=== PATIENT | female | born 1975 | race Caucasian/White ===

== ENCOUNTER 2018-03-06 20:01 | Inpatient (IN) | payer OTHER ==
[~2018-03-06 20:01] MED LIST: Iopamidol 370 76% 100 ML VIAL ONE
[2018-03-06 20:28] LABS: Bilirubin Negative (Negative); Blood, Urine Trace (Negative); Clarity CLOUDY (Clear); Glucose, Urine (Dipstick) Negative (Negative); Leukocyte Negative (Negative); Nitrite Negative (Negative); Protein, Urine (Dipstick) Negative (Neg-Trace); Specific Gravity, Urine 1.022 (1.002-1.036); Urobilinogen 0.2 mg/dL (0.2-1.0)
[2018-03-06 20:29] LABS: Pregnancy Test - Urine (BHCG) Negative (Negative); Pregu Control Background? CLEAR/WHITE (CLR/WHITE); Pregu Control Bar Appear? YES (CONTROL BAR); Specific Gravity 1.022 (1.002-1.036)
[2018-03-06 20:30] LABS: Bacteria/HPF Rare-Few HPF (None Seen); WBC/HPF 21-50 HPF (0-3)
[2018-03-06] MEDS ORDERED: Ondansetron PF 4 MG/2 ML Vial ONE (20:32)
[2018-03-06] MEDS ORDERED: Morphine 4 MG/ML VIAL ONE ×2 (20:32→22:26)
[2018-03-06 20:36] LABS: Hyaline Casts/LPF 0-3 HYALINE CAST LPF (0-3 Hyaline)
[2018-03-06 21:00] LABS: #Basophils 0.1 thou/uL (0.0-0.2); #Eosinphils 0.1 thou/uL (0.0-0.7); #Lymphocytes 2.4 thou/uL (1.20-3.40); #Monocytes 1.4 thou/uL (0.11-0.59); #Neutrophils 8.9 thou/uL (1.40-6.50); %Basophils 0.5 % (0.0-1.0); %Eosinophils 0.7 % (0.0-10.0); %Lymphocytes 18.7 % (21.0-51.0); %Monocytes 11.1 % (0.0-10.0); Hemoglobin 9.6 g/dL (12.0-16.0); Mean Corpuscular HGB CONC 31.8 g/dL (32.0-36.0); Mean Corpuscular Hemoglobin 25.5 pg (27.0-31.0); Mean Corpuscular Volume 80.1 fL (78.0-98.0); Mean Platelet Volume 5.8 fL (7.4-10.4); PLT Morphology Comment Appears Increased; Platelet Count 960 thou/uL (130-400); RBC Distribution Width 14.5 % (11.5-14.5); Red Blood Cell (RBC) Count 3.77 mill/uL (4.20-5.40); White Blood Cell (WBC) Count 12.9 thou/uL (4.8-10.8)
[2018-03-06 21:04] LABS: Amphetamine Not Detected (NotDetected); Barbiturates Screen Not Detected (NotDetected); Benzodiazepine Screen Not Detected (NotDetected); Cocaine Metabolite Screen Not Detected (NotDetected); Medtox Control Line Valid? VALID (VALID); Medtox Reader # READER 4; Methadone Not Detected (NotDetected); Methamphetamine Not Detected (NotDetected); Opiate Screen Not Detected (NotDetected); Oxycodone Screen Not Detected (NotDetected); Phencyclidine (PCP) Not Detected (NotDetected); THC/Cannabinoid Screen Detected (NotDetected); Tricyclic Screen Not Detected (NotDetected)
[2018-03-06 21:19] LABS: ALT (SGPT) 8 U/L (8-55); AST (SGOT) 8 U/L (5-34); Albumin 3.9 g/dL (3.5-5.0); Alkaline Phosphatase 62 U/L (40-150); Anion Gap 16 mmol/L (10-20); BUN (Urea Nitrogen) 16 mg/dL (7.0-18.7); Bilirubin, Total 0.2 mg/dL (0.2-1.2); Calc. Creatinine Clearance 0 mL/min (70-130); Calcium 10.8 mg/dL (7.8-10.44); Carbon Dioxide 28 mmol/L (22-29); Chloride 97 mmol/L (98-107); Estimated GFR-MDRD 84; Globulin 3.2 g/dL (2.4-3.5); Glucose 95 mg/dL (70-105); Lipase 31 U/L (8-78); Protein, Total 7.1 g/dL (6.0-8.3); Sodium 138 mmol/L (136-145)
[2018-03-06 21:22] LABS: Potassium 2.8 mmol/L (3.5-5.1)
[2018-03-06] MEDS ORDERED: Potassium Chloride 20 MEQ TAB ONE (21:29)
[2018-03-06] MEDS ORDERED: Magnesium 2 GM/50 ML BAG (IN WATER) ONE (22:13)
--- NOTE | 2018-03-06 22:18 | CT ---
CT ABDOMEN AND PELVIS WITH IV CONTRAST 03/06/18 HISTORY: Generalized abdominal pain which is getting worse. Patient losing weight. Vomiting. FINDINGS: The visualized lung bases are clear. Post cholecystectomy changes are seen with mild biliary ductal d ilatation related to post cholecystectomy changes. The liver is otherwise normal in appearance. The s pleen, pancreas, bilateral adrenal glands, kidneys, abdominal aorta and decompressed urinary bladder as well as uterus demonstrate a normal CT appearance. A 2.9 cm low density structure is seen within the left anterior aspect of the pelvis which likely rep resents an ovarian cyst. Low density structures are also seen within the right adnexal region probabl y related to follicles within a patient's right ovary. Surgical clip is seen in the lower pelvis. The appendix is not visualized. There does appear to be curvilinear area of increased density adjacen t to the cecal apex which could be related to postsurgical changes secondary to a prior appendectomy, but clinical correlation is recommended. Loops of small bowel are normal in caliber. Small amount of retained fecal material is seen throughou t the colon. There is an area of abnormal increased thickening involving the gastric antrum and pylor us of the stomach with a low density area seen within area of thickening which could be related to an area of prominent ulceration. Contrast material does extend into this region as well. Small bowel is normal in caliber. IMPRESSION: 1. Abnormal area of thickening involving the gastric antrum and pylorus of the stomach with the area of thickening. There is also suggestion of a collection extending into the area of thickening wh ich could be related to large ulceration, and findings may be related to ulcer disease. However, ulce rating neoplastic process could not be excluded. In the region of ulceration in the gastric wall, the re is thinning along the posterior wall. This likely predisposes the patient to perforation of the ga stric wall in this region. GI consultation is recommended for further evaluation. 2. Mildly prominent lymph nodes adjacent to the area of thickening in the stomach, largest measu ring 11 mm in short axis, and these lymph nodes may be reactive in origin. 3. Post cholecystectomy changes. 4. Probable left ovarian cyst, but followup ultrasound examination in six weeks is recommended. 5. Above findings discussed with Dr. Mathew with the Emergency Department on 03/06/18 at 2219 ho urs. POS: [facility]
[2018-03-06] MEDS ORDERED: Pantoprazole 40 MG VIAL ONE (22:51)
[2018-03-07] MEDS ORDERED: Morphine 4 MG/ML VIAL SLOW IVP SCH (01:00)
[2018-03-07] MEDS ORDERED: Dextrose 5 % And 0.9 % NaCl 1,000 ML IV SCH (01:00)
[2018-03-07] MEDS ORDERED: Magnesium 2 GM/50 ML 2 GM in Premix Bag 1 BAG IVPB SCH (01:00)
[2018-03-07] MEDS ORDERED: Sodium Chloride 0.9% 20 ML ONE (01:14)
[2018-03-07] MEDS: Ondansetron PF 4 MG/2 ML Vial SLOW IVP PRN ×4 (01:27→20:10)
[2018-03-07] MEDS: Morphine 4 MG/ML VIAL SLOW IVP PRN ×3 (05:52→20:04)
[2018-03-07] MEDS ORDERED: Ondansetron PF 4 MG/2 ML Vial IVP PRN (06:42)
[2018-03-07] MEDS ORDERED: Senokot S 8.6-50 MG TAB PO PRN ×2 (06:42)
[2018-03-07] MEDS ORDERED: Loratadine 10 MG TAB PO PRN (06:42)
[2018-03-07] MEDS ORDERED: hydrALAZINE 20 MG/ML VIAL SLOW IVP PRN (06:42)
[2018-03-07] MEDS ORDERED: Bisacodyl 5 MG TAB PO PRN ×2 (06:42)
[2018-03-07] MEDS ORDERED: Cepastat Lozenges 1 LOZ PO PRN (06:42)
[2018-03-07] MEDS ORDERED: Calcium Carbonate 500 MG ChewTAB PO PRN (06:42)
[2018-03-07] MEDS ORDERED: Acetaminophen 325 MG TAB PO PRN (06:42)
[2018-03-07] MEDS ORDERED: Zolpidem Tartrate 5 MG TAB PO PRN ×2 (06:42)
[2018-03-07] MEDS ORDERED: Diabetic Tussin 200 MG/10 ML UDCUP PO PRN (06:42)
[2018-03-07] MEDS ORDERED: Sodium Chloride 0.65% Nasal 44 ML BOT EA NARE PRN (06:42)
[2018-03-07] MEDS ORDERED: Eucerin (Mineral Oil/Petrolatum,White) 30 gm Jar TOP PRN (06:42)
[2018-03-07] MEDS ORDERED: Bisacodyl 10 MG SUPP PR PRN (06:42)
[2018-03-07] MEDS ORDERED: Loperamide HCl 2 MG CAP PO PRN ×2 (06:42)
[2018-03-07] MEDS ORDERED: Ondansetron ODT 4 MG TAB PO PRN (06:42)
[2018-03-07] MEDS ORDERED: Artificial Tears 18 DROP/0.9 ML EA EYE PRN (06:42)
[2018-03-07] MEDS: D5 0.9% NS w/ 20 mEq KCl 1,000 ML IV SCH ×3 (07:51→20:00)
[2018-03-07] MEDS ORDERED: Pantoprazole 40 MG VIAL IVP SCH (09:00)
[2018-03-07] MEDS ORDERED: Pantoprazole 80 MG, Admixture Fee 1 EACH in Sodium Chloride 0.9% 100 ML IVP SCH (09:15)
[2018-03-07] MEDS ORDERED: Morphine 2 MG/ML SYRINGE ONE (09:48)
--- NOTE | 2018-03-07 10:30 | HP ---
PRIMARY CARE PHYSICIAN: [facility]. REASON FOR ADMISSION: Intractable epigastric as well as back pain, hypokalemia, hypomagnesemia, and possible gastric ulcer versus gastric mass. HISTORY OF PRESENT ILLNESS: A 42-year-old female, who has no significant medical history, who is sick since November. The patient reports that in November, symptoms started with upper back pain. She is pointing back pain on the thoracic region as well as predominantly on the right side, which is sharp in nature, constant, about 10/10 in intensity without any specific aggravating or relieving factors. The patient was trying to get medical help on medical attention since November, but unfortunately because of some insurance reasons, she was not able to get an appointment. Finally, she scheduled an appointment on Thursday, but her pain was so intense for last few days, so decided to come to the emergency room for evaluation. Since November, the patient was taking ibuprofen as [id number] scheduled for her pain and the patient also reports that since several months, she pointing more than a year, she has intermittent epigastric abdominal pain, which is getting worse with foods. She also has intermittent nausea and vomiting at home. She had never noticed any hematemesis, melena, or hematochezia. She lost almost 35 pounds within a year. The patient also noticed rash on her back as well as on the right side of the lower back. The patient was trying heat bed at home for her upper back pain without any improvement. The patient denies any UTI symptoms. She denies any fever or chills. She denies any flu-like illness. She denies any cough, pleuritic chest pain, or hemoptysis. REVIEW OF SYSTEMS: CONSTITUTIONAL: Negative for weight loss or gain, ability to conduct usual activities. SKIN: Negative for rash, itching. EYES: Negative for double vision, pain. ENT/MOUTH: Negative for nose bleeding, neck stiffness, pain, tenderness. CARDIOVASCULAR: Negative for palpitations, dyspnea on exertion, orthopnea. RESPIRATORY: Negative for shortness of breath, wheezing, cough, hemoptysis, fever or night sweats. GASTROINTESTINAL: Negative for poor appetite, abdominal pain, heartburn, nausea, vomiting, constipation, or diarrhea. GENITOURINARY: Negative for urgency, frequency, dysuria, nocturia. MUSCULOSKELETAL: Negative for pain, swelling. NEUROLOGIC/PSYCHIATRIC: Negative for anxiety, depression. ALLERGY/IMMUNOLOGIC: Negative for skin rash, bleeding tendency. Please see my HPI for pertinent positives and negatives. All other review of systems reviewed and negative except as mentioned in HPI. ALLERGIES: HYDROCHLOROTHIAZIDE. CURRENT HOME MEDICATION: Ibuprofen 600 mg q.6 hourly p.r.n. PAST MEDICAL HISTORY: Hypertension during and migraine headache. PAST SURGICAL HISTORY: x2, cyst removed from ovary, cholecystectomy, and appendicectomy. PAST PSYCHIATRIC HISTORY: Reviewed and negative. SOCIAL HISTORY: The patient is smoking about half pack per day. She is not , but she has a boyfriend. She is periodically abusing marijuana. She denies any alcohol abuse. FAMILY HISTORY: No family history of coronary artery disease, stroke, or cancer. EMERGENCY ROOM COURSE: The patient is given Protonix 40 mg, IV fluid 2 L, morphine 4 mg x2, Zofran 8 mg, magnesium sulfate 2 g, and potassium chloride 40 mEq p.o. PHYSICAL EXAMINATION: VITAL SIGNS: On arrival, blood pressure 132/96, pulse 124, respiratory rate 20, temperature 98.8, and saturation 98% on room air. Weight 45.3 kg. GENERAL: The patient is currently alert, awake, appears emaciated. No obvious acute distress. HEAD: Normocephalic and atraumatic. EYES: Pupils are round and reactive to light. Extraocular muscles are intact. ENT: Oropharynx within normal limits. Moist mucous membranes. No oral lesion. No pharyngeal erythema. No exudate. NECK: Supple. No JVD. No thyromegaly. No carotid bruit. No jugular venous distention. LUNGS: Clear to auscultation without any rhonchi or rales. CARDIAC: S1 and S2. Regular, tachycardia. No murmur. No gallop. No rub. ABDOMEN: The patient does have epigastric tenderness. No Lawrence sign. No guarding. No rigidity. No rebound. No suprapubic discomfort. BACK: The patient does have a reticular rash over her upper back and petechial rash on the right side of lower back. The patient does have upper back discomfort, but no point tenderness. EXTREMITIES: Upper extremities; passive movement of all joints is normal. Lower extremities; no edema, good distal pulsation. SKIN: No skin rash. HEMATOLOGIC: No lymphadenopathy. PSYCHIATRIC: Normal affect. NEUROLOGIC: Nonfocal examination. LABORATORY DATA: Significant labs: CT abdomen and pelvis reviewed by me and reported as abnormal area of thickening involving gastric antrum and pylorus of the stomach related with probably large ulceration, prominent lymph node adjacent to the area of thickening in the stomach. CBC: WBC 12.9, hemoglobin 9.6, and platelet 916. BMP: Sodium 138, potassium 2.8, chloride 97, carbon dioxide 28, BUN 16, creatinine 0.76, glucose 95, calcium 10.8, magnesium 1.4. LFT: AST 8, ALT 8, alkaline phosphatase 62, and albumin 3.9, lipase 31. Urinalysis, unremarkable. test, negative. Urine drug screen, positive for cannabinoids. ASSESSMENT AND PLAN: 1. Epigastric abdominal pain. This patient is taking NSAID as scheduled since November. She has CT scan finding of thickening of the gastric antrum and pylorus. Most likely, the patient has underlying large ulceration from peptic ulcer disease secondary to most likely from NSAID, but underlying malignant process is also likely in her case. This patient's pain is getting worse with food and she is not eating because she is afraid of getting more pain after food and she has significant weight loss that all reports alarming feature and she also has underlying anemia. We will consult fence erector. We will keep her n.p.o. We will treat her with Protonix drip and the patient will need ultimately upper endoscopy evaluation. Meanwhile, the patient will be hydrated with IV fluid. 2. Upper back pain, etiology uncertain. We will control her pain with morphine 2 mg every four hourly. Depending upon her clinical course, we will decide to do more investigation, if needed. 3. Protein-calorie malnutrition. The patient has significant weight loss, failure to thrive secondary to probably gastric ulcer disease and neoplastic process needs to be excluded. 4. Rash. The patient has reticular rash on back, probably related with dermatitis from application of hot bags for her back pain. She has petechial rash that cannot be explained. We will monitor. 5. Anemia, normocytic normochromic. The patient will be given iron sulfate upon discharge. We will check iron study tomorrow. 6. Thrombocytosis, likely reactive secondary to anemia. 7. Hypokalemia. The patient had potassium replaced and we will replace potassium with IV fluid. 8. Hypomagnesemia, which is replaced in the emergency room and we will repeat magnesium level tomorrow. 9. Tobacco abuse disorder. Smoking cessation counseling given. Healthy lifestyle measure discussed with the patient. 10. Marijuana abuse. Counseling given to avoid any illicit drugs. 11. Deep venous thrombosis prophylaxis, SCD boots. We will avoid heparin product because of large ulceration. 12. Gastrointestinal prophylaxis. The patient will be kept on Protonix drip. CODE STATUS: The patient is full code. DISPOSITION: Plan based on clinical course. We are expecting the patient's stay in hospital more than 2 midnights. PLAN OF CARE: Discussed with the patient in detail. Job ID: [id number]
[2018-03-07] MEDS ORDERED: PROPOFOL 200 MG/20 ML VIAL ONE (12:35)
--- NOTE | 2018-03-07 15:21 | CON ---
DATE OF CONSULTATION: 03/07/2018 GI INPATIENT CONSULTATION NOTE REASON FOR CONSULTATION: Abdominal pain, weight loss, and abnormal CT scan. HISTORY OF PRESENT ILLNESS: Cesia Hernandes is a 42-year-old woman with a history of migraine headaches, cholecystectomy, appendectomy, and C-sections. She was admitted to the hospital last night. She reports that for several years, she has had some intermittent more mild epigastric pain, which she has not really paid much attention to; however, now for the past several months, she has been having significant constant severe pain in her back. She describes this as being in her thoracic spine area. She has been taking a lot of nonsteroidal anti-inflammatory drugs throughout this time. She had been taking 4 ibuprofen about every 6 hours for at least the past several weeks. She also does smoke, for the past 20 years. As her back pain has gotten worse, she started to have nausea and daily vomiting and loss of appetite and decrease in oral intake. This has been worsening over the past month. She estimates she has lost about 30 pounds over the past month. On presentation to the emergency department yesterday, she was found to be hypokalemic and hypomagnesemic. A CT scan of the abdomen and pelvis was performed, and this demonstrates an area of thickening and also an area of thinning in the gastric antral area, consistent with ulcer disease versus neoplasm. There is a comment that the posterior wall of the stomach is thin and this predisposes her to perforation. There are multiple prominent lymph nodes adjacent to this area of thickening in the stomach. She has been n.p.o. since admission. No fever. No diarrhea. She denies any hematemesis, melena, or hematochezia. REVIEW OF SYSTEMS: Full review of systems including constitutional, head, eyes, ears, nose, throat, GI, , cardiovascular, respiratory, musculoskeletal, and neurologic systems is negative except as noted in the HPI. PAST MEDICAL HISTORY: 1. Hypertension during . 2. Migraine headaches. PAST SURGICAL HISTORY: 1. x2. 2. Cholecystectomy. 3. Appendectomy. ALLERGIES: HYDROCHLOROTHIAZIDE. OUTPATIENT MEDICATIONS: Ibuprofen 4 tablets every 6 hours. SOCIAL HISTORY: She has smoked for the past 20 years. No alcohol or drug abuse. FAMILY HISTORY: Negative for GI malignancy. PHYSICAL EXAMINATION: VITAL SIGNS: Temperature 99.3, pulse 86, blood pressure 154/97, and 98% oxygen saturation on room air. GENERAL: A 42-year-old woman, lying in bed, in mild distress from back pain. SKIN: No jaundice. No rashes were palpable. EYES: No scleral icterus. Extraocular movements intact. ENT: Mucous membranes moist. No oral lesions. LYMPH: No submandibular or supraclavicular lymphadenopathy. THYROID: Nontender to palpation. HEART: Regular rate and rhythm. LUNGS: Clear to auscultation bilaterally. ABDOMEN: Flat. Bowel sounds present. Soft. Tender to palpation throughout the abdomen, but no guarding or rebound tenderness. EXTREMITIES: No peripheral edema. VESSELS: Radial pulses 2+ bilaterally. NEUROLOGIC: Cranial nerves 2 through 12 intact bilaterally. No focal deficits. LABORATORY STUDIES: WBC 12.9, hemoglobin 9.6, MCV 80.1, and platelets 960. Sodium 138, potassium 2.8, BUN 16, creatinine 0.76, calcium 10.8, and magnesium 1.4. LFTs all normal with total bilirubin 0.2, alkaline phosphatase 62, AST 8, ALT 8, and lipase only 31. Urinalysis shows 21 to 50 wbc's. Urine drug screen is positive for cannabinoids. IMAGING STUDIES: CT of the abdomen and pelvis demonstrated an area of abnormal increased thickening in the gastric antrum and pylorus with a low-density area within the thickening perhaps relating to prominent ulceration. There is thinning along the posterior wall of the stomach. There are mildly prominent lymph nodes adjacent to the area of stomach thickening, the largest measuring 11 mm. ASSESSMENT: 1. Abnormal CT scan of the stomach, neoplasm versus ulcer disease. 2. Epigastric pain. 3. Abnormal weight loss. 4. Anemia. PLAN: I discussed with the patient that her CT scan is highly suggestive of severe peptic ulcer disease. What is less clear is whether this underlies her back pain, or whether it might be a consequence of all the NSAID she has been taking for her back pain. We will plan for diagnostic EGD. I did discuss with her she is a bit higher risk with the procedure given the CT findings of thinning along the posterior wall of the stomach. I have already spoken with Dr. Glover, so we will have surgical backup in case of any complication such as perforation. I have started her on an IV PPI. We will likely be taking gastric biopsies if ulcer disease is noted on the EGD. The patient understands and desires to proceed. Thank you for the consultation. Please call anytime with questions or concerns. Job ID: [id number]
[2018-03-07] MEDS ORDERED: [UNRECOGNIZED DRUG - REMARK] FS SCH (17:15)
--- NOTE | 2018-03-07 17:42 | OP ---
DATE OF PROCEDURE: 03/07/2018 UTILITY WORKER PRODUCTION SURGEON: None. PROCEDURE PERFORMED: Esophagogastroduodenoscopy with biopsies. INDICATION: A 42-year-old woman with abdominal pain, unintentional weight loss, nausea, vomiting, and anemia, with CT scan showing abnormal thickening and thinning of the gastric antrum concerning for neoplasm versus peptic ulcer disease. MEDICATIONS: See Anesthesia record. FINDINGS: After discussion of the risks, benefits, alternatives of the procedure, informed consent was obtained and witnessed. Pre-endoscopic cardiopulmonary examination was satisfactory. Time-out was performed before sedation was achieved. Sedation was achieved with Anesthesia assistance in the endoscopy unit. A Pentax adult upper endoscope was placed into the oropharynx and passed through the cricopharyngeus under direct visualization. The esophageal mucosa appeared normal throughout with a normal-appearing Z-line. The endoscope was advanced into the stomach. Forward and retroflexed views of the entire gastric mucosa were obtained. There was no evidence of any old blood or active bleeding on this examination. The gastric fundus and body appeared normal, but in the gastric antrum, there was a very large, deeply cratered ulceration basically involving the entire posterior wall of the gastric antrum. The edges were somewhat heaped up. The base was necrotic. No visible vessel noted. I took biopsies from the ulcer edge to rule out malignancy. The ulceration does not involve the pylorus, which actually appears normal. The endoscope was advanced through the pylorus and into the first and second portions of the duodenum. There was some mild erosive duodenitis involving the duodenal bulb. At this point, the upper endoscope was completely withdrawn suctioning out excess air and fluid, and the procedure was completed. The patient tolerated the procedure well. There were no immediate postprocedure complications. IMPRESSION: 1. Very large, deeply cratered ulcer involving the entire posterior wall of the gastric antrum, with necrotic base, but no bleeding. Ulcer edge was biopsied to rule out malignancy. 2. Mild erosive duodenitis. 3. Otherwise, normal esophagogastroduodenoscopy. RECOMMENDATIONS: 1. Protonix 40 mg IV twice daily. We will switch from IV to p.o., twice daily dosing, on hospital discharge. 2. Check H. pylori serology with tomorrow morning's labs. If positive, treat with triple therapy and confirm eradication. 3. Follow up biopsy results on the gastric ulcer biopsies. 4. Avoid all further nonsteroidal anti-inflammatory drugs. 5. The patient needs to completely quit smoking. 6. Full liquid diet for now. 7. We will need to repeat EGD at the 2-month interval to assess ulcer healing. The patient is indeed at a high risk for complication including bleeding as well as perforation with such a large deep ulcer. Expect that even if the ulcer heals well, there will be significant deformity. Job ID: [id number]
[2018-03-07 17:45] LABS: Bilirubin Negative (Negative); Blood, Urine Negative (Negative); Clarity CLOUDY (Clear); Glucose, Urine (Dipstick) Negative (Negative); Leukocyte Negative (Negative); Nitrite Negative (Negative); Protein, Urine (Dipstick) Negative (Neg-Trace); Specific Gravity, Urine 1.009 (1.002-1.036); Urobilinogen 0.2 mg/dL (0.2-1.0); pH, Urine 6.5 (5.0-9.0)
[2018-03-07 17:47] LABS: Bacteria/HPF 1+ HPF (None Seen); Hyaline Casts/LPF 4-6 HYALINE CAST LPF (0-3 Hyaline); Pathc Cast-AUWi Flag 1.16 (0-2.49)
[2018-03-07 17:56] LABS: RBC/HPF 0-3 HPF (0-3)
[2018-03-08] MEDS: Morphine 4 MG/ML VIAL SLOW IVP PRN ×6 (00:53→20:42)
[2018-03-08] MEDS: Ondansetron PF 4 MG/2 ML Vial SLOW IVP PRN ×4 (00:57→22:25)
[2018-03-08] MEDS: Pantoprazole 40 MG VIAL IVP SCH ×2 (00:59→15:08)
[2018-03-08 05:50] LABS: #Basophils 0.1 thou/uL (0.0-0.2); #Eosinphils 0.1 thou/uL (0.0-0.7); #Lymphocytes 2.6 thou/uL (1.20-3.40); #Monocytes 0.7 thou/uL (0.11-0.59); #Neutrophils 5.4 thou/uL (1.40-6.50); %Basophils 0.8 % (0.0-1.0); %Eosinophils 1.4 % (0.0-10.0); %Lymphocytes 29.1 % (21.0-51.0); %Neutrophils 60.7 % (42.0-75.0); Hemoglobin 7.5 g/dL (12.0-16.0); Mean Corpuscular HGB CONC 30.3 g/dL (32.0-36.0); Mean Corpuscular Hemoglobin 25.1 pg (27.0-31.0); Mean Corpuscular Volume 82.8 fL (78.0-98.0); Platelet Count 702 thou/uL (130-400); RBC Distribution Width 14.6 % (11.5-14.5); Red Blood Cell (RBC) Count 2.98 mill/uL (4.20-5.40); White Blood Cell (WBC) Count 8.9 thou/uL (4.8-10.8)
[2018-03-08] MEDS: D5 0.9% NS w/ 20 mEq KCl 1,000 ML IV SCH (06:08)
[2018-03-08 06:54] LABS: ALT (SGPT) 9 U/L (8-55); AST (SGOT) 7 U/L (5-34); Alkaline Phosphatase 53 U/L (40-150); Anion Gap 8 mmol/L (10-20); BUN (Urea Nitrogen) Less than 4 mg/dL (7.0-18.7); Bilirubin, Total 0.2 mg/dL (0.2-1.2); Calc. Creatinine Clearance 101 mL/min (70-130); Calcium 8.3 mg/dL (7.8-10.44); Carbon Dioxide 28 mmol/L (22-29); Chloride 108 mmol/L (98-107); Estimated GFR-MDRD Greater than 90; Globulin 2.4 g/dL (2.4-3.5); Glucose 94 mg/dL (70-105); Magnesium 1.7 mg/dL (1.6-2.6); Potassium 3.1 mmol/L (3.5-5.1); Protein, Total 5.4 g/dL (6.0-8.3); Sodium 141 mmol/L (136-145)
[2018-03-08] MEDS ORDERED: Potassium Chloride 20 MEQ in Premix Bag 1 BAG IVPB SCH (07:45)
[2018-03-08 08:30] LABS: Iron Binding Capacity, Total 284 mcg/dL (265-497)
[2018-03-08 08:31] LABS: Iron 8 ug/dL (50-170)
[2018-03-08 08:38] LABS: Iron 10 ug/dL (50-170); Iron Binding Capacity, Total 288 mcg/dL (265-497)
[2018-03-08] MEDS ORDERED: Iron Sucrose Complex 200 MG in Sodium Chloride 0.9% 250 ML 250 ML IVPB SCH ×2 (09:00→12:15)
[2018-03-08] MEDS ORDERED: Iron, Sodium Ferric Gluconate 250 MG in Sodium Chloride 0.9% 250 ML 250 ML IVPB SCH (09:30)
--- NOTE | 2018-03-08 09:42 | PDOC.PN ---
- Subjective Encounter Start Date: 03/08/18 Encounter Start Time: 07:40 -: old records requested/rev Patient seen and examined. No new complaints. No overnight events - Objective Resuscitation Status - Order Detail: 03/07/18 06:42 Resuscitation Status Routine Resuscitation Status: FULL: Full Resuscitation MAR Reviewed: Yes Vital Signs & Weight: Vital Signs (12 hours) Temp Pulse Resp BP Pulse Ox 03/08/18 07:28 97.8 F 81 14 127/90 98 03/08/18 04:51 98 03/08/18 03:22 98.1 F 74 12 138/91 H 98 03/08/18 00:00 97.7 F 86 20 160/102 H 98 Weight Weight 102 lb 6.4 oz I&O: 03/07/18 03/08/18 03/09/18 06:59 06:59 06:59 Intake Total 475 3117 Output Total 1300 2100 Balance -825 1017 Result Diagrams: 03/08/18 05:01 03/08/18 05:01 EKG Reviewed by me: Yes (nsr) Phys Exam - Physical Examination Constitutional: NAD HEENT: PERRLA, moist MMs, sclera anicteric Neck: no JVD, supple Respiratory: no wheezing, no rales, no rhonchi Cardiovascular: RRR, no significant murmur, no rub Gastrointestinal: soft, no distention, positive bowel sounds epigastric tenderness Musculoskeletal: no edema, pulses present Neurological: non-focal, normal sensation Lymphatic: no nodes Psychiatric: normal affect, A&O x 3 Skin: no rash, normal turgor Dx/Plan (1) Anemia, normocytic normochromic Code(s): D64.9 - ANEMIA, UNSPECIFIED Status: Acute Comment: iron deficiency anemia (2) Hypertension Code(s): I10 - ESSENTIAL (PRIMARY) HYPERTENSION Status: Chronic (3) Hypokalemia Code(s): E87.6 - HYPOKALEMIA Status: Acute (4) Hypomagnesemia Code(s): E83.42 - HYPOMAGNESEMIA Status: Acute (5) Weight loss Status: Acute (6) Cannabis abuse Code(s): F12.10 - CANNABIS ABUSE, UNCOMPLICATED Status: Chronic (7) Tobacco abuse Code(s): Z72.0 - TOBACCO USE Status: Chronic - Plan cont current plan of care * replace potassium * continue protonix * iron study checked and will give parenteral iron * medication reviewed as below * symptomatic treatment. Review of Systems - Review of Systems ENT: negative: Ear Pain, Ear Discharge, Nose Pain, Nose Discharge, Nose Congestion, Mouth Pain, Mouth Swelling, Throat Pain, Throat Swelling, Other Respiratory: negative: Cough, Dry, Shortness of Breath, Hemoptysis, SOB with Excertion, Pleuritic Pain, Sputum, Wheezing Cardiovascular: negative: chest pain, palpitations, orthopnea, paroxysmal nocturnal dyspnea, edema, light headedness, other Gastrointestinal: Abdominal Pain. negative: Nausea, Vomiting, Diarrhea, Constipation, Melena, Hematochezia, Other Genitourinary: negative: Dysuria, Frequency, Incontinence, Hematuria, Retention , Other Musculoskeletal: Back Pain. negative: Neck Pain, Shoulder Pain, Arm Pain, Hand Pain, Leg Pain, Foot Pain, Other - Medications/Allergies Allergies/Adverse Reactions: Allergies Allergy/AdvReac Type Severity Reaction Status Date / Time hydrochlorothiazide Allergy Anaphylaxis Verified 03/07/18 01:21 Medications: Current Medications Acetaminophen (Tylenol) 650 mg PO Q4H PRN PRN Reason: Headache/Fever/Mild Pain (1-3) Last Admin: 03/07/18 12:17 Dose: 650 mg Hydrocodone Bitart/Acetaminophen ([place] 5/325) 1 tab PO Q4H PRN PRN Reason: Moderate Pain (4-6) Artificial Tears (Tears Naturale) 2 drop EA EYE PRN PRN PRN Reason: Dry Eyes Bisacodyl (Dulcolax) 10 mg [place] DAILYPRN PRN PRN Reason: Constipation Bisacodyl (Dulcolax) 10 mg PO DAILYPRN PRN PRN Reason: Constipation Calcium Carbonate (Tums) 1,000 mg PO Q4H PRN PRN Reason: Heartburn or Indigestion Guaifenesin (Robitussin Sf) 200 mg PO Q4H PRN PRN Reason: Cough Hydralazine HCl (Apresoline) 10 mg SLOW IVP Q4H PRN PRN Reason: SBP > 180 and HR < 70 Potassium Chloride 20 meq/ (Device) 100 mls @ 50 mls/hr IVPB 0745 [facility] Stop: 03/08/18 09:44 Last Admin: 03/08/18 08:17 Dose: 100 mls Ferric Sodium Gluconate Complex 250 mg/ Sodium Chloride 270 mls @ 129.808 mls/ hr IVPB 0930 [facility] Stop: 03/08/18 11:35 Loperamide HCl (Imodium) 2 mg PO PRN PRN PRN Reason: Diarrhea/Loose Stools Loratadine (Claritin) 10 mg PO DAILYPRN PRN PRN Reason: Sinus Symptoms Mineral Oil/White Petrolatum (Eucerin Cream) 0 gm TOP BIDPRN PRN PRN Reason: Dry Skin Morphine Sulfate (Morphine) 2 mg SLOW IVP Q4H PRN PRN Reason: Pain Last Admin: 03/08/18 08:12 Dose: 2 mg Ondansetron HCl (Zofran) 4 mg SLOW IVP Q4H PRN PRN Reason: Nausea/Vomiting Last Admin: 03/08/18 05:22 Dose: 4 mg Ondansetron HCl (Zofran Odt) 4 mg PO Q6H PRN PRN Reason: Nausea/Vomiting Ondansetron HCl (Zofran) 4 mg IVP Q6H PRN PRN Reason: Nausea/Vomiting Pantoprazole Sodium (Protonix) 40 mg IVP 0100,1300 [facility] Last Admin: 03/08/18 00:59 Dose: 40 mg Senna/Docusate Sodium (Senokot S) 2 tab PO BID PRN PRN Reason: Constipation Sodium Chloride (Flush - Normal Saline) 10 ml IVF PRN PRN PRN Reason: Saline Flush Last Admin: 03/08/18 05:22 Dose: 10 ml Sodium Chloride ([place] Nasal [place] 0.65%) 0 ml EA NARE QIDPRN PRN PRN Reason: Nasal Congestion Sodium Chloride (Flush - Normal Saline) 10 ml IV 0100,1300 [facility] Last Admin: 03/08/18 00:59 Dose: 10 ml Throat Lozenges (Cepastat Lozenges) 1 bell PO Q2H PRN PRN Reason: Sore Throat Zolpidem Tartrate (Ambien) 5 mg PO HSPRN PRN PRN Reason: Insomnia
--- NOTE | 2018-03-08 10:27 | PRG ---
DATE OF SERVICE: 03/08/2018 TYPE OF REPORT: GI INPATIENT DAILY PROGRESS NOTE SUBJECTIVE: Ms. Hernandes is feeling about the same today. Abdominal discomfort is minimal. She tolerates her liquid diet. Her primary complaint remains her chronic back pain. PHYSICAL EXAMINATION: VITAL SIGNS: Temperature 97.8, pulse 81, blood pressure 127/90, and 98% oxygen saturation on room air. GENERAL: No acute distress. HEART: Regular rate and rhythm. LUNGS: Clear to auscultation bilaterally. ABDOMEN: Bowel sounds present. Soft. Some tenderness to palpation in the epigastrium. No guarding, rebound, or tenderness. EXTREMITIES: No peripheral edema. LABORATORY STUDIES: Hemoglobin 7.5, WBC 8.9, and platelets 702. Sodium 141, potassium 3.1, BUN less than 4, and creatinine is 0.54. LFTs all normal. Ferritin is low at 5.77, iron is 10, and TIBC 288. ASSESSMENT AND PLAN: 1. Large gastric ulcer, gastric antrum. 2. Iron deficiency anemia. 3. Duodenitis. I discussed with the patient that this ulcer likely represents injury from heavy nonsteroidal anti-inflammatory drug use plus her tobacco abuse. We are awaiting gastric biopsies to rule out malignancy, but this is likely a benign ulcer. I think it explains her anemia, weight loss, and nausea. I am not really convinced that the ulcer is directly related to her chronic back pain, which remains her primary complaint. She is worried about what she is going to do about pain with nonsteroidal avoidance. I would leave further workup and management of this to the primary service, but certainly a plan needs to be worked out to allow her to stay away from nonsteroidal anti-inflammatory drugs. Continue the IV PPI twice daily for now. Upon hospital discharge, transition to p.o. twice daily dosing for at least the next couple of months until after we can repeat esophagogastroduodenoscopy to assess ulcer healing. Her diet can be advanced as tolerated. From a GI standpoint, once she is tolerating p.o. intake is in place, she could be discharged from the hospital. I would also have her on oral iron supplementation. I agree with the IV iron plan for today. Please call anytime with questions or concerns. Job ID: [id number]
[2018-03-08] MEDS ORDERED: Iron, Sodium Ferric Gluconate 250 MG in Sodium Chloride 0.9% 100 ML IVPB SCH (12:45)
[2018-03-08 14:48] VITALS: BMI 18.7
--- NOTE | 2018-03-08 17:56 | MRI ---
MRI THORACIC SPINE WITHOUT CONTRAST: Date: 03/08/18 HISTORY: Back pain. COMPARISON: None. FINDINGS: The marrow signal is maintained. No marrow infiltrative process. Old superior end plate deformity is present at T10. No acute fracture. No acute malalignment. The cord signal is normal. There is no neural foraminal or spinal canal narrowing. IMPRESSION: No abnormality of the thoracic spine to explain patient's back pain. Please see recent CT examination which may be a source of the patient's pain. POS: GARRISON
--- NOTE | 2018-03-08 18:03 | MRI ---
MRI LUMBAR SPINE NONCONTRAST: DATE: 03/08/18 HISTORY: 42-year-old female with low back pain. COMPARISON: None available. FINDINGS: For the purposes of this report, it will be assumed that there are 5 lumbar-type vertebrae. The vert ebral body heights are maintained. Conus medullaris terminates at L1. No major spondylolisthesis. Cauda equina is arranged in a symmetri bull, normal distribution throughout the thecal sac. Bone marrow signal is normal. There is no high gr margie disc space narrowing at any level. There is disc desiccation at L4-5 and L5-S1. The rest of the i ntervertebral discs are normal. The findings by individual levels are as follows: T12-L1: Normal. L1-2: Normal. L2-3: Normal. L3-4: Normal. L4-5: Mild disc bulge. Right lateral annular fissure. Mild to moderate bilateral neural foraminal st enosis. No central stenosis. L5-S1: Mild diffuse disc bulge plus superimposed central and bilateral paracentral shallow disc prot rusion with annular fissure. This abuts the bilateral S1 nerve roots. No central stenosis. Mild to mo derate right neural foraminal stenosis. Minimal left neural foraminal stenosis. No high grade facet osteoarthrosis at any level. IMPRESSION: 1. Mild degenerative disc disease at L4-5 and L5-S1, where there are right lateral and midline (resp ectively) small disc protrusions with annular fissures. 2. No central spinal canal stenosis at any level. JARETT Paige POS: MIRZA
[2018-03-09] MEDS: Pantoprazole 40 MG VIAL IVP SCH ×2 (00:33→12:59)
[2018-03-09] MEDS: Morphine 4 MG/ML VIAL SLOW IVP PRN ×4 (00:50→23:49)
[2018-03-09 05:43] LABS: #Basophils 0.1 thou/uL (0.0-0.2); #Eosinphils 0.1 thou/uL (0.0-0.7); #Lymphocytes 2.6 thou/uL (1.20-3.40); #Monocytes 0.7 thou/uL (0.11-0.59); #Neutrophils 3.4 thou/uL (1.40-6.50); %Eosinophils 1.8 % (0.0-10.0); %Lymphocytes 38.2 % (21.0-51.0); %Monocytes 9.8 % (0.0-10.0); %Neutrophils 49.2 % (42.0-75.0); Hemoglobin 7.5 g/dL (12.0-16.0); Mean Corpuscular HGB CONC 30.6 g/dL (32.0-36.0); Mean Corpuscular Hemoglobin 25.4 pg (27.0-31.0); Mean Corpuscular Volume 83.1 fL (78.0-98.0); Platelet Count 690 thou/uL (130-400); RBC Distribution Width 14.7 % (11.5-14.5); Red Blood Cell (RBC) Count 2.93 mill/uL (4.20-5.40); White Blood Cell (WBC) Count 6.9 thou/uL (4.8-10.8)
[2018-03-09 06:01] LABS: Anion Gap 7 mmol/L (10-20); BUN (Urea Nitrogen) Less than 4 mg/dL (7.0-18.7); Calc. Creatinine Clearance 99 mL/min (70-130); Calcium 8.7 mg/dL (7.8-10.44); Carbon Dioxide 29 mmol/L (22-29); Chloride 109 mmol/L (98-107); Estimated GFR-MDRD Greater than 90; Glucose 78 mg/dL (70-105); Potassium 4.2 mmol/L (3.5-5.1); Sodium 141 mmol/L (136-145)
[2018-03-09] MEDS: Ondansetron PF 4 MG/2 ML Vial SLOW IVP PRN ×3 (11:00→21:57)
--- NOTE | 2018-03-09 11:46 | PDOC.PN ---
- Subjective Encounter Start Date: 03/09/18 Encounter Start Time: 08:40 Patient seen and examined. No new complaints. No overnight events - Objective Resuscitation Status - Order Detail: 03/07/18 06:42 Resuscitation Status Routine Resuscitation Status: FULL: Full Resuscitation MAR Reviewed: Yes Vital Signs & Weight: Vital Signs (12 hours) Temp Pulse Resp BP BP Pulse Ox 03/09/18 08:00 98.0 F 81 16 136/92 H 96 03/09/18 04:00 97.7 F 77 16 119/73 97 03/09/18 00:00 98.1 F 64 16 123/81 98 Weight Admit Weight 99 lb 11.2 oz Weight 100 lb 4.8 oz I&O: 03/08/18 03/09/18 03/10/18 06:59 06:59 06:59 Intake Total 3117 1999 Output Total 2100 0 Balance 1017 1999 Result Diagrams: 03/09/18 05:03 03/09/18 05:03 Phys Exam - Physical Examination Constitutional: NAD HEENT: PERRLA, moist MMs, sclera anicteric Neck: no JVD, supple Respiratory: no wheezing, no rales, no rhonchi Cardiovascular: RRR, no significant murmur, no rub Gastrointestinal: soft, non-tender, no distention, positive bowel sounds Musculoskeletal: no edema, pulses present Neurological: non-focal, normal sensation, moves all 4 limbs Psychiatric: normal affect, A&O x 3 Skin: no rash, normal turgor Dx/Plan (1) Anemia, normocytic normochromic Code(s): D64.9 - ANEMIA, UNSPECIFIED Status: Acute Comment: iron deficiency anemia (2) Hypertension Code(s): I10 - ESSENTIAL (PRIMARY) HYPERTENSION Status: Chronic (3) Hypokalemia Code(s): E87.6 - HYPOKALEMIA Status: Acute (4) Hypomagnesemia Code(s): E83.42 - HYPOMAGNESEMIA Status: Acute (5) Weight loss Status: Acute (6) Cannabis abuse Code(s): F12.10 - CANNABIS ABUSE, UNCOMPLICATED Status: Chronic (7) Tobacco abuse Code(s): Z72.0 - TOBACCO USE Status: Chronic - Plan cont current plan of care, plan discussed w/ family * give venofer one more dose today * pathology negative for mlg * will consider discharge tomorrow * discussed with mother * counselled to avoid smoking and nsaid * medication reviewed as below * symptomatic treatment. * advance diet * repeat cbc bmp tomorrow Review of Systems - Review of Systems ENT: negative: Ear Pain, Ear Discharge, Nose Pain, Nose Discharge, Nose Congestion, Mouth Pain, Mouth Swelling, Throat Pain, Throat Swelling, Other Respiratory: negative: Cough, Dry, Shortness of Breath, Hemoptysis, SOB with Excertion, Pleuritic Pain, Sputum, Wheezing Cardiovascular: negative: chest pain, palpitations, orthopnea, paroxysmal nocturnal dyspnea, edema, light headedness, other Gastrointestinal: negative: Nausea, Vomiting, Abdominal Pain, Diarrhea, Constipation, Melena, Hematochezia, Other Genitourinary: negative: Dysuria, Frequency, Incontinence, Hematuria, Retention , Other Musculoskeletal: negative: Neck Pain, Shoulder Pain, Arm Pain, Back Pain, Hand Pain, Leg Pain, Foot Pain, Other Skin: negative: Rash, Lesions, Talon, Bruising, Other - Medications/Allergies Allergies/Adverse Reactions: Allergies Allergy/AdvReac Type Severity Reaction Status Date / Time hydrochlorothiazide Allergy Anaphylaxis Verified 03/07/18 01:21 Medications: Current Medications Acetaminophen (Tylenol) 650 mg PO Q4H PRN PRN Reason: Headache/Fever/Mild Pain (1-3) Last Admin: 03/07/18 12:17 Dose: 650 mg Hydrocodone Bitart/Acetaminophen ([place] 5/325) 1 tab PO Q4H PRN PRN Reason: Moderate Pain (4-6) Artificial Tears (Tears Naturale) 2 drop EA EYE PRN PRN PRN Reason: Dry Eyes Bisacodyl (Dulcolax) 10 mg [place] DAILYPRN PRN PRN Reason: Constipation Bisacodyl (Dulcolax) 10 mg PO DAILYPRN PRN PRN Reason: Constipation Calcium Carbonate (Tums) 1,000 mg PO Q4H PRN PRN Reason: Heartburn or Indigestion Guaifenesin (Robitussin Sf) 200 mg PO Q4H PRN PRN Reason: Cough Hydralazine HCl (Apresoline) 10 mg SLOW IVP Q4H PRN PRN Reason: SBP > 180 and HR < 70 Loperamide HCl (Imodium) 2 mg PO PRN PRN PRN Reason: Diarrhea/Loose Stools Loratadine (Claritin) 10 mg PO DAILYPRN PRN PRN Reason: Sinus Symptoms Mineral Oil/White Petrolatum (Eucerin Cream) 0 gm TOP BIDPRN PRN PRN Reason: Dry Skin Morphine Sulfate (Morphine) 2 mg SLOW IVP Q4H PRN PRN Reason: Pain Last Admin: 03/09/18 11:03 Dose: 2 mg Ondansetron HCl (Zofran) 4 mg SLOW IVP Q4H PRN PRN Reason: Nausea/Vomiting Last Admin: 03/09/18 11:00 Dose: 4 mg Ondansetron HCl (Zofran Odt) 4 mg PO Q6H PRN PRN Reason: Nausea/Vomiting Ondansetron HCl (Zofran) 4 mg IVP Q6H PRN PRN Reason: Nausea/Vomiting Pantoprazole Sodium (Protonix) 40 mg IVP 0100,1300 KATLYN Last Admin: 03/09/18 00:33 Dose: 40 mg Senna/Docusate Sodium (Senokot S) 2 tab PO BID PRN PRN Reason: Constipation Sodium Chloride (Flush - Normal Saline) 10 ml IVF PRN PRN PRN Reason: Saline Flush Last Admin: 03/08/18 05:22 Dose: 10 ml Sodium Chloride (Craig Nasal [place] 0.65%) 0 ml EA NARE QIDPRN PRN PRN Reason: Nasal Congestion Sodium Chloride (Flush - Normal Saline) 10 ml IV 0100,1300 KATLYN Last Admin: 03/09/18 00:33 Dose: 10 ml Throat Lozenges (Cepastat Lozenges) 1 bell PO Q2H PRN PRN Reason: Sore Throat Zolpidem Tartrate (Ambien) 5 mg PO HSPRN PRN PRN Reason: Insomnia
[2018-03-09] MEDS ORDERED: Iron Sucrose Complex 200 MG in Sodium Chloride 0.9% 250 ML 250 ML IVPB SCH (12:00)
[2018-03-09] MEDS ORDERED: Iron, Sodium Ferric Gluconate 250 MG in Sodium Chloride 0.9% 100 ML IVPB SCH (12:45)
[2018-03-09] MEDS: HYDROcodone/Acetaminophen 5/325 mg Tablet PO PRN ×2 (18:01→22:05)
--- NOTE | 2018-03-09 18:13 | PRG ---
DATE OF SERVICE: 03/09/2018 TYPE OF REPORT: GI INPATIENT DAILY PROGRESS NOTE SUBJECTIVE: Ms. Hernandes is feeling okay. Her abdominal pain is a little bit improved. She was able to eat some breakfast this morning, but did have significant nausea and was not really hungry for lunch. She is about to try eating dinner. OBJECTIVE: VITAL SIGNS: Temperature 98.0, pulse 81, blood pressure 136/92, and 96% oxygen saturation on room air. GENERAL: No acute distress. HEART: Regular rate and rhythm. LUNGS: Clear to auscultation bilaterally. ABDOMEN: Soft and mildly tender to palpation in the epigastrium. No guarding or rebound tenderness. EXTREMITIES: No peripheral edema. LABORATORY STUDIES: Hemoglobin stable at 7.5, WBC 6.9, and platelets 690. Sodium 141, potassium 4.2, BUN less than 4, creatinine 0.55. Gastric ulcer biopsies came back benign. H. pylori serology is still pending. ASSESSMENT AND PLAN: 1. Large gastric ulcer in the gastric antrum. 2. Iron deficiency anemia. 3. Duodenitis. I reviewed the plan with the patient. She needs to avoid all tobacco and avoid further NSAID use, and continue on PPI twice daily as an outpatient. She got another iron infusion here and should probably be discharged on oral iron supplementation as well. We would recommend symptomatic pain and nausea control for the duration while her ulcer is healing. We will still plan on repeat upper endoscopy at about a 2-month interval to assess ulcer healing. We will contact her with H. pylori serology results when they are available. Once she is tolerating her diet and symptoms are well controlled, she could be discharged from the hospital from a GI standpoint. Please call anytime with questions or concerns. Job ID: [id number]
[2018-03-10] MEDS: Pantoprazole 40 MG VIAL IVP SCH (00:01)
[2018-03-10] MEDS: HYDROcodone/Acetaminophen 5/325 mg Tablet PO PRN ×2 (05:00→09:47)
[2018-03-10 05:30] LABS: #Basophils 0.1 thou/uL (0.0-0.2); #Eosinphils 0.1 thou/uL (0.0-0.7); #Lymphocytes 2.4 thou/uL (1.20-3.40); #Monocytes 0.6 thou/uL (0.11-0.59); #Neutrophils 4.1 thou/uL (1.40-6.50); %Basophils 0.8 % (0.0-1.0); %Eosinophils 1.5 % (0.0-10.0); %Lymphocytes 33.2 % (21.0-51.0); %Monocytes 8.4 % (0.0-10.0); %Neutrophils 56.2 % (42.0-75.0); Hemoglobin 8.1 g/dL (12.0-16.0); Mean Corpuscular HGB CONC 30.5 g/dL (32.0-36.0); Mean Corpuscular Hemoglobin 25.4 pg (27.0-31.0); Mean Corpuscular Volume 83.3 fL (78.0-98.0); Mean Platelet Volume 6.1 fL (7.4-10.4); Platelet Count 702 thou/uL (130-400); RBC Distribution Width 14.8 % (11.5-14.5); Red Blood Cell (RBC) Count 3.19 mill/uL (4.20-5.40); White Blood Cell (WBC) Count 7.2 thou/uL (4.8-10.8)
[2018-03-10 05:37] LABS: Anion Gap 11 mmol/L (10-20); BUN (Urea Nitrogen) 9 mg/dL (7.0-18.7); Calc. Creatinine Clearance 112 mL/min (70-130); Calcium 8.9 mg/dL (7.8-10.44); Carbon Dioxide 29 mmol/L (22-29); Chloride 105 mmol/L (98-107); Estimated GFR-MDRD Greater than 90; Glucose 86 mg/dL (70-105); Potassium 4.5 mmol/L (3.5-5.1); Sodium 140 mmol/L (136-145)
[2018-03-10] MEDS: Ondansetron PF 4 MG/2 ML Vial SLOW IVP PRN (07:33)
--- NOTE | 2018-03-10 09:09 | DIS ---
DATE OF ADMISSION: 03/06/2018 DATE OF DISCHARGE: 03/10/2018 PRIMARY CARE PHYSICIAN: [facility] Call Admission. DISCHARGE DISPOSITION: Home. PRIMARY DISCHARGE DIAGNOSES: 1. Large gastric ulcer due to NSAID. 2. Hypokalemia, corrected. 3. Hypomagnesemia, corrected. 4. Epigastric abdominal pain due to problem #1, improved. 5. Iron deficiency anemia. SECONDARY DISCHARGE DIAGNOSES: 1. Tobacco abuse disorder. 2. History of hypertension. 3. Cannabis abuse. PRIMARY PROCEDURE/OPERATION: Upper endoscopy was performed by Dr. Sloan. Pathology report came back negative for any malignancy. RADIOLOGICAL INVESTIGATION: Abdomen and pelvis CT scan showed gastric ulceration. Thoracic and lumbar spine MRI did not show any acute process. LABORATORY DATA: Significant labs; WBC 7.2, hemoglobin 8.1, platelet 702. Sodium 140, potassium 4.5, BUN 9, creatinine 0.53, calcium 8.9, ferritin 5.77. LFT normal. Urinalysis unremarkable. test negative. Urine drug screen positive for cannabinoids. DISCHARGE MEDICATIONS: 1. Ferrous sulfate 325 mg p.o. b.i.d. 2. Protonix 40 mg p.o. b.i.d. CONTRAINDICATION: None. CODE STATUS: Full code. INPATIENT HISTOLOGIST: Dr. Jose Raul Sloan was following while in the hospital. TEST RESULTS PENDING ON DISCHARGE: None. ALLERGIES: HYDROCHLOROTHIAZIDE. DISCHARGE PLAN: Posthospital, the patient is instructed to follow up with primary care physician and primary care physician need to start antihypertensive medication if needed. The patient is also instructed to follow up with Dr. Sloan as an outpatient basis for followup on H pylori test result. Posthospital, the patient will follow up with primary care physician and Dr. Sloan. HOSPITAL COURSE: A 42-year-old female with above-mentioned medical problem, who was admitted by me. Please see my HPI for further details. This patient was having back pain for last several months and she was kept taking NSAID on outpatient basis. She was also having epigastric abdominal pain and for that reason, she was also taking ibuprofen without any improvement, but she was getting worse. She was not able to eat because the pain was getting worse and that is why she lost weight and she was also anemic. She had iron deficiency anemia. She did not require any blood transfusion during hospitalization, but we gave her 2 doses of IV iron therapy and started oral iron therapy upon discharge. 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 The pathology report came back negative for any malignancy. H pylori report is pending. We advised her to take Protonix 40 mg p.o. b.i.d. We advised her to avoid NSAID, smoking, and cannabis abuse. We also advised to follow up with primary care physician for hypertension management if needed. While in the hospital, her blood pressure mostly remained normal, so we did not start antihypertensive medication. Counselling given regarding how to manage pain, first advised to try with Tylenol and if not improving then she is advised to follow up with PCP. At this point there is no clinical reason to prescribe any narcotics which she requested on discharge. Her back pain is likely related with gastric ulcer and it is referred pain, and we will treat gastric ulcer. The patient is seen and examined at bedside today. REVIEW OF SYSTEMS: Reviewed and negative. PHYSICAL EXAMINATION: VITAL SIGNS: Temperature 98, pulse 81, respiratory rate 16, saturation 96%, blood pressure 136/92. Weight 112 pounds. GENERAL: The patient is currently alert, awake. No obvious acute distress. HEENT: Head; normocephalic, atraumatic. Eyes; pupils round, reactive to light. Extraocular muscle intact. ENT, oropharynx within normal limits. Moist mucous membranes. No oral lesion. No pharyngeal erythema. No exudate. NECK: Supple. No JVD. No thyromegaly. No carotid bruit. LUNGS: Clear to auscultation without any rhonchi or rales. CARDIAC: S1 and S2 regular. No murmur. No gallop. No rub. ABDOMEN: Soft and benign without any tenderness. EXTREMITIES: No edema. NEUROLOGIC: Nonfocal examination. The patient is medically stable for discharge today. Job ID: [id number] [facility]
[2018-03-10 10:27] VITALS: BP 143/85; TEMP 97.9
[2018-03-10 18:12] LABS: H. pylori IgA ABS Less than 9.0 units (0.0-8.9); H. pylori IgG ABS 0.21 (0.00-0.79); H. pylori IgM ABS Less than 9.0 units (0.0-8.9)
== END 2018-03-10 13:30 | disposition home or self-care (01) | DRG 384 ==
LOC: ERS 20:01 → 2NO 23:00 → T4-B 03-08 20:16
PROVIDERS: ADMIT Hospitalist; ATTEND Hospitalist
PROC: 0DB68ZX Excision of Stomach, Via Natural or Artificial Opening Endoscopic, Diagnostic (ICD-10-PCS; principal; 2018-03-10)
DX: K25.9 Gastric ulcer, unspecified as acute or chronic, without hemorrhage or perforation (principal); E46 Unspecified protein-calorie malnutrition; E87.6 Hypokalemia; E83.42 Hypomagnesemia; M54.9 Dorsalgia, unspecified; R10.13 Epigastric pain; Z88.8 Allergy status to other drugs, medicaments and biological substances; G43.909 Migraine, unspecified, not intractable, without status migrainosus; F17.210 Nicotine dependence, cigarettes, uncomplicated; Z68.20 Body mass index [BMI] 20.0-20.9, adult; L30.9 Dermatitis, unspecified; D47.3 Essential (hemorrhagic) thrombocythemia; F12.10 Cannabis abuse, uncomplicated; K31.89 Other diseases of stomach and duodenum; K29.80 Duodenitis without bleeding; D50.9 Iron deficiency anemia, unspecified; T39.395A Adverse effect of other nonsteroidal anti-inflammatory drugs [NSAID], initial encounter; I10 Essential (primary) hypertension
CPT/HCPCS: 36415; 72146; 72148; 74177; 80048; 80053; 80306; 81001; 81003; 81015; 81025; 82728; 83540; 83550; 83690; 83735; 85025; 88305; 96361; 96365; 96367; 96375; C9113; J2270; J2405; J2704; J2916; J3480; J3490; J7050